=== PATIENT | female | born 1990 | race Caucasian/White ===

== ENCOUNTER 2021-08-02 11:26 | Emergency (ER) | payer MEDICAID | END 2021-08-02 12:52 | disposition home or self-care (01) | LOC: JP.ED 11:26 | DX: F41.0 Panic disorder [episodic paroxysmal anxiety] (principal) | CPT/HCPCS: 99283 ==

== ENCOUNTER 2023-06-17 13:53 | Emergency (ER) | payer MEDICAID ==
[2023-06-17] MEDS ORDERED: Ketorolac 30 MG/ML SDV IV ONE (15:43)
[2023-06-17] MEDS ORDERED: Sodium Chloride 0.9% 1,000 ML IV SCH (15:45)
[2023-06-17 16:05] LABS: BASOPHILS ABSOLUTE AUTO 0.04 K/uL (0.00-0.10); BASOPHILS PERCENT AUTO 0.2 % (0.1-1.3); EOSINOPHILS PERCENT AUTO 0.1 % (0.0-5.4); HEMATOCRIT 42.7 % (34.3-46.0); HEMOGLOBIN 14.3 g/dL (11.2-15.5); IMMATURE GRAN ABSOLUTE AUTO 0.05 K/uL (0.00-0.23); IMMATURE GRAN PERCENT AUTO 0.3 % (0.0-0.7); MEAN CORPUSCULAR HEMOGLOBIN 30.6 pg (31.6-35.5); MEAN CORPUSCULAR HGB CONC 33.5 g/dL (31.6-35.5); MEAN CORPUSCULAR VOLUME 91.2 fL (81.4-99.0); MONOCYTES ABSOLUTE AUTO 0.66 K/uL (0.20-0.90); MONOCYTES PERCENT AUTO 3.8 % (3.3-12.6); NEUTROPHILS ABSOLUTE AUTO 14.63 K/uL (1.0-7.6); NEUTROPHILS PERCENT AUTO 84.6 % (40.0-78.1); PLATELET COUNT,PLT 284 K/uL (130-375); RED BLOOD CELL COUNT 4.68 M/uL (3.77-5.24); WHITE BLOOD CELL COUNT,WBC 17.3 K/uL (3.2-11.0)
[2023-06-17 16:06] LABS: EOSINOPHILS ABSOLUTE AUTO 0.01 K/uL (0.00-0.40)
[2023-06-17] MEDS ORDERED: Ondansetron 4 MG/2 ML SDV IVPUSH ONE ×2 (16:13→19:18)
[2023-06-17 16:30] LABS: ANION GAP 13.7 mmol/L (5.0-14.0); BLOOD UREA NITROGEN,BUN 12 mg/dL (7-18); CALCIUM 9.4 mg/dL (8.5-10.1); CARBON DIOXIDE,CO2 24 mmol/L (21-32); CHLORIDE,CL 105 mmol/L (100-108); CREATININE 0.8 mg/dL (0.6-1.0); ESTIMATED GFR 100 mL/min (>60); GLUCOSE RANDOM 103 mg/dL (74-106); POTASSIUM,K 4.2 mmol/L (3.6-5.2); SODIUM,NA 143 mmol/L (140-148)
[2023-06-17 16:35] LABS: A/G RATIO 0.8 (1.2-2.2); ALBUMIN 3.5 g/dL (3.4-5.0); BILIRUBIN DIRECT 0.1 mg/dL (0.0-0.2); BILIRUBIN INDIRECT 0.3; BILIRUBIN TOTAL 0.4 mg/dL (0.2-1.0); PROTEIN TOTAL,TP 7.8 g/dL (6.4-8.2)
[2023-06-17 17:30] LABS: APPEARANCE,URINE SLIGHTLY CLOUDY (CLEAR); BILIRUBIN,URINE NEGATIVE (NEGATIVE); COLOR,URINE YELLOW (YELLOW); GLUCOSE,URINE NEGATIVE (NEGATIVE); KETONES,URINE >=160 mg/dL (NEGATIVE); LEUKOCYTE ESTERASE,URINE NEGATIVE (NEGATIVE); NITRITE,URINE NEGATIVE (NEGATIVE); OCCULT BLOOD,URINE MODERATE (NEGATIVE); PROTEIN,URINE 30 mg/dL (NEGATIVE); UROBILINOGEN,URINE 0.2 EU/dL (0.2-1.0)
[2023-06-17 17:36] LABS: AMORPHOUS SEDIMENT,URINE NOT SEEN; BACTERIA,URINE FEW; EPITHELIAL CELLS,URINE FEW; MUCUS,URINE FEW
[2023-06-17] MEDS ORDERED: Iopamidol 612 MG/ML 100 ML Bottle IV SCH (18:30)
[2023-06-17] MEDS ORDERED: Sodium Chloride 0.9% 50 ML IV SCH (18:30)
[2023-06-17] MEDS ORDERED: HYDROmorphone 1 MG/ML Syringe IVPUSH ONE (19:18)
[2023-06-17] MEDS ORDERED: Ketorolac 15 MG/ML SDV IVPUSH ONE (20:52)
[2023-06-17] MEDS ORDERED: Tamsulosin 0.4 MG Cap.ER PO ONE (20:52)
[2023-06-17 22:20] LABS: CORONAVIRUS COVID-19 NAA NEGATIVE (NEGATIVE); INFLUENZA A NAA NEGATIVE (NEGATIVE); INFLUENZA B NAA NEGATIVE (NEGATIVE); RESPIRATORY SYNCYTIAL VIR NAA NEGATIVE (NEGATIVE)
== END 2023-06-17 22:24 | disposition home or self-care (01) ==
LOC: JP.ED 13:53
DX: N20.2 Calculus of kidney with calculus of ureter (principal); Z79.899 Other long term (current) drug therapy
CPT/HCPCS: 0241U; 36415; 74178; 80048; 80076; 81001; 81025; 83690; 85025; 96361; 96374; 96375; 96376; 99284-25; A9270-GY; J1170; J1885; J2405; J3490; J7030; Q9967

== ENCOUNTER 2023-06-19 17:12 | Inpatient (IN) | payer MEDICAID ==
[2023-06-19] MEDS: HYDROmorphone 1 MG/ML Syringe IVPUSH ONE ×2 (18:30→22:30)
[2023-06-19] MEDS: Sodium Chloride 0.9% 1,000 ML IV ONE ×2 (18:31→19:50)
[2023-06-19] MEDS: Tamsulosin 0.4 MG Cap.ER PO ONE (18:31)
[2023-06-19 20:51] LABS: BASOPHILS PERCENT AUTO 0.2 % (0.1-1.3); EOSINOPHILS PERCENT AUTO 0.1 % (0.0-5.4); HEMATOCRIT 38.1 % (34.3-46.0); HEMOGLOBIN 12.5 g/dL (11.2-15.5); IMMATURE GRAN ABSOLUTE AUTO 0.04 K/uL (0.00-0.23); IMMATURE GRAN PERCENT AUTO 0.3 % (0.0-0.7); LYMPHOCYTES ABSOLUTE AUTO 2.13 K/uL (0.8-3.3); LYMPHOCYTES PERCENT AUTO 18.6 % (11.4-47.7); MEAN CORPUSCULAR HEMOGLOBIN 30.9 pg (31.6-35.5); MEAN CORPUSCULAR HGB CONC 32.8 g/dL (31.6-35.5); MEAN CORPUSCULAR VOLUME 94.1 fL (81.4-99.0); MONOCYTES ABSOLUTE AUTO 0.55 K/uL (0.20-0.90); MONOCYTES PERCENT AUTO 4.8 % (3.3-12.6); NEUTROPHILS ABSOLUTE AUTO 8.71 K/uL (1.0-7.6); PLATELET COUNT,PLT 209 K/uL (130-375); RED BLOOD CELL COUNT 4.05 M/uL (3.77-5.24); WHITE BLOOD CELL COUNT,WBC 11.5 K/uL (3.2-11.0)
[2023-06-19 20:52] LABS: BASOPHILS ABSOLUTE AUTO 0.02 K/uL (0.00-0.10); EOSINOPHILS ABSOLUTE AUTO 0.01 K/uL (0.00-0.40)
[2023-06-19 21:11] LABS: A/G RATIO 0.8 (1.2-2.2); ALANINE AMINOTRANSFERASE,ALT 34 U/L (12-78); ALBUMIN 2.7 g/dL (3.4-5.0); ALKALINE PHOSPHATASE 26 U/L (46-116); ASPARTATE AMNIOTRANSFERASE,AST 17 U/L (15-37); BILIRUBIN TOTAL 0.3 mg/dL (0.2-1.0); BLOOD UREA NITROGEN,BUN 8 mg/dL (7-18); CALCIUM 7.9 mg/dL (8.5-10.1); CARBON DIOXIDE,CO2 22 mmol/L (21-32); CHLORIDE,CL 107 mmol/L (100-108); CREATININE 0.9 mg/dL (0.6-1.0); EST CRCL DRUG DOSING (CG) 80.75 mL/min; ESTIMATED GFR 87 mL/min (>60); GLUCOSE RANDOM 89 mg/dL (74-106); POTASSIUM,K 3.8 mmol/L (3.6-5.2); PROTEIN TOTAL,TP 6.3 g/dL (6.4-8.2); SODIUM,NA 141 mmol/L (140-148)
[2023-06-19] MEDS ORDERED: Naloxone 0.4 MG/ML SDV IVPUSH PRN (22:08)
[2023-06-19 22:22] LABS: CORONAVIRUS COVID-19 NAA NEGATIVE (NEGATIVE); INFLUENZA A NAA NEGATIVE (NEGATIVE); INFLUENZA B NAA NEGATIVE (NEGATIVE); RESPIRATORY SYNCYTIAL VIR NAA NEGATIVE (NEGATIVE)
[2023-06-19] MEDS ORDERED: [UNRECOGNIZED DRUG - OTHER] EYERT SCH (23:12)
[2023-06-19] MEDS ORDERED: Ondansetron 4 MG/2 ML SDV IV PRN (23:12)
[2023-06-19] MEDS ORDERED: SODIUM CHLORIDE 2% EYERT SCH (23:12)
[2023-06-19] MEDS ORDERED: Acetaminophen 325 MG Tab PO PRN (23:12)
[2023-06-19] MEDS ORDERED: Morphine 2 MG/ML SYRINGE IVPUSH PRN (23:12)
[2023-06-19] MEDS: Dextrose 5%-Lactated Ringers 1,000 ML IV SCH (23:28)
[2023-06-20] MEDS: Dorzolamide/Timolol 2%-0.5% Ophth Soln 10 ML Bottle EYEBOTH SCH (00:02)
[2023-06-20] MEDS: Brimonidine 0.2% Ophth Soln 5 ML Bottle EYEBOTH SCH (00:03)
[2023-06-20] MEDS: prednisoLONE Acetate 1% Ophth Susp 5 ML Bottle EYERT SCH (00:04)
[2023-06-20] MEDS: Latanoprost 0.005% Ophth Soln 2.5 ML Bottle EYELF SCH (00:05)
[2023-06-20] MEDS: traZODone 50 MG Tab PO SCH (00:15)
[2023-06-20] MEDS: Enoxaparin 40 MG/0.4 ML Syringe SUBCUT SCH (00:16)
[2023-06-20] MEDS: Pantoprazole 40 MG Vial IV SCH (00:16)
[2023-06-20 05:14] LABS: BASOPHILS ABSOLUTE AUTO 0.03 K/uL (0.00-0.10); BASOPHILS PERCENT AUTO 0.3 % (0.1-1.3); EOSINOPHILS ABSOLUTE AUTO 0.06 K/uL (0.00-0.40); EOSINOPHILS PERCENT AUTO 0.7 % (0.0-5.4); HEMATOCRIT 34.3 % (34.3-46.0); HEMOGLOBIN 11.2 g/dL (11.2-15.5); IMMATURE GRAN ABSOLUTE AUTO 0.03 K/uL (0.00-0.23); IMMATURE GRAN PERCENT AUTO 0.3 % (0.0-0.7); LYMPHOCYTES ABSOLUTE AUTO 3.44 K/uL (0.8-3.3); LYMPHOCYTES PERCENT AUTO 38.4 % (11.4-47.7); MEAN CORPUSCULAR HEMOGLOBIN 30.5 pg (31.6-35.5); MEAN CORPUSCULAR HGB CONC 32.7 g/dL (31.6-35.5); MEAN CORPUSCULAR VOLUME 93.5 fL (81.4-99.0); MONOCYTES ABSOLUTE AUTO 0.65 K/uL (0.20-0.90); MONOCYTES PERCENT AUTO 7.3 % (3.3-12.6); NEUTROPHILS ABSOLUTE AUTO 4.74 K/uL (1.0-7.6); PLATELET COUNT,PLT 202 K/uL (130-375); RED BLOOD CELL COUNT 3.67 M/uL (3.77-5.24)
[2023-06-20 05:24] LABS: CALCIUM 7.6 mg/dL (8.5-10.1); CREATININE 0.7 mg/dL (0.6-1.0); EST CRCL DRUG DOSING (CG) 103.82 mL/min; POTASSIUM,K 3.2 mmol/L (3.6-5.2)
[2023-06-20 05:29] LABS: ANION GAP 11.2 mmol/L (5.0-14.0)
[2023-06-20 05:41] LABS: APPEARANCE,URINE CLEAR (CLEAR); BILIRUBIN,URINE NEGATIVE (NEGATIVE); COLOR,URINE YELLOW (YELLOW); GLUCOSE,URINE NEGATIVE (NEGATIVE); KETONES,URINE 15 mg/dL (NEGATIVE); LEUKOCYTE ESTERASE,URINE SMALL (NEGATIVE); NITRITE,URINE NEGATIVE (NEGATIVE); OCCULT BLOOD,URINE SMALL (NEGATIVE); PROTEIN,URINE NEGATIVE (NEGATIVE); UROBILINOGEN,URINE 0.2 EU/dL (0.2-1.0)
[2023-06-20] MEDS: oxyCODONE 5 MG Tab PO PRN (05:42)
[2023-06-20 05:49] LABS: AMORPHOUS SEDIMENT,URINE NOT SEEN; BACTERIA,URINE FEW; EPITHELIAL CELLS,URINE FEW; MUCUS,URINE NOT SEEN; RBC,URINE 0-5 (0-5)
[2023-06-20] MEDS: Dicyclomine 10 MG Cap PO SCH (08:04)
[2023-06-20] MEDS: Tamsulosin 0.4 MG Cap.ER PO SCH (08:04)
[2023-06-20] MEDS: FLU (Fluarix Quad) QS2023-24(6MOS UP)/PF 60 MCG/0.5 ML Syringe IM ONE (08:56)
[2023-06-20] MEDS ORDERED: MILI PO SCH (09:00)
[2023-06-20] MEDS ORDERED: traZODone 50 MG Tab PO PRN (09:00)
[2023-06-20] MEDS ORDERED: NORGESTIMATE ETHINYL ESTRADIOL PO SCH (09:00)
[2023-06-20] MEDS: SODIUM CHLORIDE 5% EYERT SCH ×2 (10:38→15:41)
[2023-06-20] MEDS: prednisoLONE Acetate 1% Ophth Susp (PTOM) EYERT SCH ×2 (10:38→13:07)
[2023-06-20] MEDS: DORZOLAMIDE EYEBOTH SCH (21:19)
[2023-06-20] MEDS: TIMOLOL EYEBOTH SCH (21:19)
[2023-06-20] MEDS: BRIMONIDINE 0.2% EYEBOTH SCH (21:19)
[2023-06-20] MEDS: Latanoprost 0.005% Ophth Soln (PTOM) EYELF SCH (21:20)
[2023-06-20] MEDS: Potassium Chloride 20 MEQ Tab.ER PO SCH (21:20)
[2023-06-20] MEDS: MILI PO SCH (21:21)
[2023-06-21] MEDS: Iopamidol 612 MG/ML 100 ML Bottle IV STA (05:15)
[2023-06-21] MEDS: Sodium Chloride 0.9% 80 ML IV STA (05:15)
[2023-06-21 05:30] LABS: BASOPHILS ABSOLUTE AUTO 0.03 K/uL (0.00-0.10); BASOPHILS PERCENT AUTO 0.4 % (0.1-1.3); EOSINOPHILS ABSOLUTE AUTO 0.08 K/uL (0.00-0.40); EOSINOPHILS PERCENT AUTO 1.1 % (0.0-5.4); IMMATURE GRAN ABSOLUTE AUTO 0.03 K/uL (0.00-0.23); IMMATURE GRAN PERCENT AUTO 0.4 % (0.0-0.7); LYMPHOCYTES ABSOLUTE AUTO 3.33 K/uL (0.8-3.3); LYMPHOCYTES PERCENT AUTO 45.4 % (11.4-47.7); MEAN CORPUSCULAR HGB CONC 33.3 g/dL (31.6-35.5); MONOCYTES ABSOLUTE AUTO 0.56 K/uL (0.20-0.90); MONOCYTES PERCENT AUTO 7.6 % (3.3-12.6); NEUTROPHILS ABSOLUTE AUTO 3.31 K/uL (1.0-7.6); NEUTROPHILS PERCENT AUTO 45.1 % (40.0-78.1); PLATELET COUNT,PLT 198 K/uL (130-375); RED BLOOD CELL COUNT 3.55 M/uL (3.77-5.24); WHITE BLOOD CELL COUNT,WBC 7.3 K/uL (3.2-11.0)
[2023-06-21] MEDS: SODIUM CHLORIDE 5% EYERT SCH (08:16)
[2023-06-21] MEDS: Ondansetron 4 MG Tab.DIS PO PRN (09:47)
[2023-06-21] MEDS: Pantoprazole 40 MG Tab.CR PO SCH (20:57)
== END 2023-06-22 14:30 | disposition home or self-care (01) | DRG 694 ==
LOC: JP.ED 17:12 → JP.MS 22:25
PROVIDERS: ADMIT Hospitalist; ATTEND Internal Medicine
DX: N13.2 Hydronephrosis with renal and ureteral calculous obstruction (principal); Z68.41 Body mass index [BMI] 40.0-44.9, adult; K80.20 Calculus of gallbladder without cholecystitis without obstruction; E66.01 Morbid (severe) obesity due to excess calories; J45.909 Unspecified asthma, uncomplicated; F41.9 Anxiety disorder, unspecified; E87.6 Hypokalemia; H40.9 Unspecified glaucoma; F32.A Depression, unspecified; G43.909 Migraine, unspecified, not intractable, without status migrainosus; Z98.49 Cataract extraction status, unspecified eye; Z79.899 Other long term (current) drug therapy; Z98.890 Other specified postprocedural states; Z11.52 Encounter for screening for COVID-19
CPT/HCPCS: 0241U; 36415; 74177; 80048; 80053; 81001; 82150; 82947; 83690; 85025; 90686; 96361; 96374; 97165-GO; 99222; 99232; 99238; 99284; 99285-25; A9270-GY; C9113; G0008; J1170; J1650; J3490; J7030; J7121; Q0162; Q9967